=== PATIENT | male | born 1955 | race Caucasian/White ===

== ENCOUNTER 2017-12-01 05:32 | Inpatient (IN) | payer BC ==
[2017-12-01] MEDS ORDERED: CEFAZOLIN 2 GM/50 ML (PMX) 50 ML IVPB (06:00)
[2017-12-01] MEDS: BUPIVACAINE 0.5% (SDV) 30 ML, morphine SULFATE (PF) 8 MG, EPINEPHrine 0.3 MG, KETOROLAC... IRR ×2 (06:00→08:16)
[2017-12-01] MEDS: traMADol 50 MG TAB PO (06:04)
[2017-12-01] MEDS: DEXAMETHASONE 1 MG TAB PO (06:04)
[2017-12-01] MEDS: GABAPENTIN 300 MG CAP PO ×2 (06:05→21:29)
[2017-12-01] MEDS ORDERED: BUPIVACAINE 0.75%/DEXT (SPINAL) 2 ML INJ (06:42)
[2017-12-01] MEDS ORDERED: morphine SULFATE/PF (10 MG/10 ML) INJ (06:43)
[2017-12-01] MEDS ORDERED: EPINEPHrine 1 MG INJ (06:45)
[2017-12-01] MEDS ORDERED: FENTAnyl 50 MCG/ML VIAL (06:49)
[2017-12-01] MEDS ORDERED: MIDAZOLAM 1 MG/ML 2 ML INJ (06:49)
[2017-12-01] MEDS ORDERED: ONDANSETRON 4 MG INJ (07:00)
[2017-12-01] MEDS ORDERED: LIDOCAINE 2% (SDV) 5 ML INJ (07:00)
[2017-12-01] MEDS ORDERED: DEXAMETHASONE 4 MG/ML 1 ML INJ (07:00)
[2017-12-01] MEDS ORDERED: ROCURONIUM 50 MG INJ (07:00)
[2017-12-01] MEDS ORDERED: THROMBIN 5000 UNIT VIAL (07:36)
[2017-12-01] MEDS ORDERED: CA CHLORIDE 10% 10 ML SYRINGE (07:36)
[2017-12-01] MEDS: POLYMYXIN/BACITRACIN 1L IRRIG (08:11)
[2017-12-01] MEDS: SOD CHLORIDE 0.9% 100 ML, TRANEXAMIC ACID 3,000 MG IRR (08:12)
[2017-12-01] MEDS: TRANEXAMIC ACID 1,000 MG in DEXTROSE 5% 100 ML IVPB (08:19)
[2017-12-01] MEDS ORDERED: SUGAMMADEX SODIUM 200 MG/2 ML VIAL IV (09:25)
[2017-12-01] MEDS ORDERED: PROPOFOL 20 ML (09:25)
[2017-12-01] MEDS ORDERED: CEFAZOLIN 1 GM INJ (09:25)
[2017-12-01] MEDS ORDERED: morphine 2 MG INJ IV ×2 (09:30)
[2017-12-01] MEDS ORDERED: DIPHENHYDRAMINE 50 MG INJ IV ×3 (09:30→10:00)
[2017-12-01] MEDS ORDERED: ONDANSETRON 4 MG INJ IV ×3 (09:30→10:00)
[2017-12-01] MEDS ORDERED: KETOROLAC 15 MG INJ IV (09:30)
[2017-12-01] MEDS ORDERED: ACETAMINOPHEN 500 MG TAB PO (09:30)
[2017-12-01] MEDS ORDERED: MAGNESIUM HYDROXIDE 30ML CUP PO (09:30)
[2017-12-01] MEDS ORDERED: OXYCODONE/ACETAMINOPHEN (5/325) TAB PO ×4 (09:30→10:00)
[2017-12-01] MEDS ORDERED: ZOLPIDEM 5 MG TAB PO (09:30)
[2017-12-01] MEDS ORDERED: FENTAnyl 50 MCG/ML VIAL IV ×3 (10:00)
[2017-12-01] MEDS ORDERED: NALOXONE (0.4 MG/ML) INJ IV (10:00)
[2017-12-01] MEDS ORDERED: MEPERIDINE 25 MG INJ IV (10:00)
[2017-12-01] MEDS ORDERED: METOCLOPRAMIDE 10 MG INJ IV (10:00)
[2017-12-01] MEDS ORDERED: MIDAZOLAM 1 MG/ML 2 ML INJ IV (10:00)
[2017-12-01] MEDS ORDERED: KETOROLAC 30 MG INJ IV ×2 (10:00→14:00)
[2017-12-01] MEDS ORDERED: LABETALOL HCL 20MG INJ IV (10:00)
[2017-12-01] MEDS ORDERED: HYDROmorphONE (0.2 MG/ML) 10ML SYG IV ×3 (10:00)
[2017-12-01] MEDS ORDERED: ALBUTEROL 0.083% (NEB) 2.5 MG/3 ML AMP HHN (10:00)
[2017-12-01] MEDS ORDERED: HYDROmorphONE 0.5 MG/0.5 ML SYG IV ×2 (10:00)
[2017-12-01] MEDS ORDERED: EPHEDrine SULFATE 50 MG/5 ML SYG IV (10:00)
[2017-12-01] MEDS ORDERED: hydrALAzine 20 MG INJ IV (10:00)
[2017-12-01] MEDS: CEFAZOLIN 1 GM/50 ML (PMX) 50 ML IVPB ×2 (10:33→17:39)
[2017-12-01] MEDS: TRANEXAMIC ACID 1,000 MG in DEXTROSE 5% 100 ML IV (10:33)
[2017-12-01] MEDS: LACTATED RINGER'S 1,000 ML IV ×3 (11:29→22:40)
[2017-12-01] MEDS: DEXAMETHASONE 2 MG TAB PO ×2 (12:02→17:39)
[2017-12-01 12:05] LABS: ADD MAN DIFF? NO
[2017-12-01 12:19] LABS: BASOPHILS % 0.2 % (0.0-2.0); EOSINOPHILS % 0.1 % (0.0-7.0); HEMATOCRIT 38.4 % (42.0-52.0); HEMOGLOBIN 13.1 g/dl (14.0-18.0); LYMPHOCYTES # 0.7 10^3/ul (0.8-2.9); LYMPHOCYTES % 8.1 % (15.0-51.0); MEAN CORPUSCULAR HEMOGLOBIN 29.7 pg (29.0-33.0); MEAN CORPUSCULAR HGB CONC 34.1 g/dl (32.0-37.0); MEAN CORPUSCULAR VOLUME 87.1 fl (82.0-101.0); MEAN PLATELET VOLUME 7.9 fl (7.4-10.4); MONOCYTE # 0.5 10^3/ul (0.3-0.9); MONOCYTES % 5.3 % (0.0-11.0); NEUTROPHIL # 7.7 10^3/ul (1.6-7.5); NEUTROPHILS % 85.3 % (39.0-77.0); PLATELET COUNT 156 10^3/UL (140-415); RED BLOOD COUNT 4.41 10^6/ul (4.70-6.10); RED CELL DISTRIBUTION WIDTH 14.5 % (11.5-14.5)
[2017-12-01 12:19] LABS: WHITE BLOOD COUNT 9.1 10^3/ul (4.8-10.8)
[2017-12-01] MEDS: DOXAZOSIN 2 MG TAB PO (21:29)
[2017-12-01] MEDS: SENNA/DOCUSATE NA (8.6MG/50MG) TAB PO (21:30)
[2017-12-01] MEDS: ATORVASTATIN 10 MG TAB PO (21:30)
[2017-12-02] MEDS: CEFAZOLIN 1 GM/50 ML (PMX) 50 ML IVPB (01:30)
[2017-12-02] MEDS: ZOLPIDEM 5 MG TAB PO (01:30)
[2017-12-02] MEDS: DEXAMETHASONE 2 MG TAB PO ×2 (06:00)
[2017-12-02 06:14] LABS: ADD MAN DIFF? NO
[2017-12-02 06:19] LABS: WHITE BLOOD COUNT 9.9 10^3/ul (4.8-10.8)
[2017-12-02 06:19] LABS: BASOPHILS % 0.1 % (0.0-2.0); EOSINOPHILS # 0.1 10^3/ul (0.0-0.5); EOSINOPHILS % 0.5 % (0.0-7.0); HEMATOCRIT 34.6 % (42.0-52.0); HEMOGLOBIN 12.1 g/dl (14.0-18.0); LYMPHOCYTES # 0.8 10^3/ul (0.8-2.9); LYMPHOCYTES % 8.1 % (15.0-51.0); MEAN CORPUSCULAR HEMOGLOBIN 29.4 pg (29.0-33.0); MEAN CORPUSCULAR VOLUME 84.2 fl (82.0-101.0); MEAN PLATELET VOLUME 8.1 fl (7.4-10.4); MONOCYTE # 0.8 10^3/ul (0.3-0.9); MONOCYTES % 8.3 % (0.0-11.0); NEUTROPHIL # 8.1 10^3/ul (1.6-7.5); NEUTROPHILS % 82.2 % (39.0-77.0); PLATELET COUNT 170 10^3/UL (140-415); RED BLOOD COUNT 4.11 10^6/ul (4.70-6.10); RED CELL DISTRIBUTION WIDTH 13.8 % (11.5-14.5)
[2017-12-02] MEDS ORDERED: KETOROLAC 15 MG INJ IV (07:08)
[2017-12-02] MEDS ORDERED: morphine 2 MG INJ IV ×2 (07:08)
[2017-12-02] MEDS ORDERED: ZOLPIDEM 5 MG TAB PO (07:08)
[2017-12-02] MEDS ORDERED: ONDANSETRON 4 MG INJ IV (07:08)
[2017-12-02] MEDS ORDERED: OXYCODONE/ACETAMINOPHEN (5/325) TAB PO ×2 (07:08)
[2017-12-02] MEDS: ASPIRIN (EC) 81 MG TAB PO (08:13)
[2017-12-02] MEDS: LOSARTAN 50 MG TAB PO (08:14)
[2017-12-02] MEDS: SENNA/DOCUSATE NA (8.6MG/50MG) TAB PO (08:14)
[2017-12-02] MEDS: ALLOPURINOL 100 MG TAB PO (08:14)
[2017-12-02] MEDS: CHLORTHALIDONE 25 MG TAB PO (08:15)
[2017-12-02] MEDS ORDERED: ALLOPURINOL 100 MG TAB PO (09:00)
[2017-12-02] MEDS ORDERED: LOSARTAN 50 MG TAB PO (09:00)
[2017-12-02] MEDS ORDERED: ASPIRIN 81 MG TAB PO (09:00)
[2017-12-02] MEDS ORDERED: CHLORTHALIDONE 25 MG TAB PO (09:00)
== END 2017-12-02 12:20 | disposition home or self-care (01) | DRG 470 ==
LOC: REC 05:32 → MS1 11:02
PROVIDERS: Orthopaedic Surgery
PROC: 0SRB04A Replacement of Left Hip Joint with Ceramic on Polyethylene Synthetic Substitute, Uncemented, Open Approach (ICD-10-PCS; principal; 2017-12-01 07:00)
DX: M16.12 Unilateral primary osteoarthritis, left hip (principal); G47.33 Obstructive sleep apnea (adult) (pediatric); E78.5 Hyperlipidemia, unspecified; I10 Essential (primary) hypertension; N40.0 Benign prostatic hyperplasia without lower urinary tract symptoms
CPT/HCPCS: 72170; 73530; 85025; 86999; 87086; 97116; 97161

== ENCOUNTER 2017-12-17 08:45 | Emergency (ER) | payer BC ==
[2017-12-17] MEDS: SOD CHLORIDE 0.9% 1,000 ML IV (08:59)
[2017-12-17] MEDS: HYDROmorphONE 1 MG/5 ML IV SYRINGE IV ×2 (09:17→09:46)
[2017-12-17] MEDS: ONDANSETRON 4 MG INJ IV (09:46)
[2017-12-17 09:52] LABS: ADD MAN DIFF? NO
[2017-12-17 10:01] LABS: BASOPHILS % 0.6 % (0.0-2.0); EOSINOPHILS # 0.1 10^3/ul (0.0-0.5); EOSINOPHILS % 2.8 % (0.0-7.0); HEMATOCRIT 34.5 % (42.0-52.0); HEMOGLOBIN 11.7 g/dl (14.0-18.0); LYMPHOCYTES % 20.8 % (15.0-51.0); MEAN CORPUSCULAR HEMOGLOBIN 29.7 pg (29.0-33.0); MEAN CORPUSCULAR HGB CONC 33.9 g/dl (32.0-37.0); MEAN CORPUSCULAR VOLUME 87.6 fl (82.0-101.0); MEAN PLATELET VOLUME 7.9 fl (7.4-10.4); MONOCYTE # 0.5 10^3/ul (0.3-0.9); MONOCYTES % 9.5 % (0.0-11.0); NEUTROPHIL # 3.1 10^3/ul (1.6-7.5); NEUTROPHILS % 64.6 % (39.0-77.0); PLATELET COUNT 181 10^3/UL (140-415); RED BLOOD COUNT 3.94 10^6/ul (4.70-6.10); RED CELL DISTRIBUTION WIDTH 15.5 % (11.5-14.5)
[2017-12-17 10:01] LABS: WHITE BLOOD COUNT 4.7 10^3/ul (4.8-10.8)
[2017-12-17 10:12] LABS: ANION GAP 13 (8-16); BLOOD UREA NITROGEN 17 mg/dl (7-20); CALCIUM 8.5 mg/dl (8.4-10.2); CARBON DIOXIDE 32 mmol/L (21-31); CHLORIDE 89 mmol/L (97-110); CREATININE 1.16 mg/dl (0.61-1.24); GLUCOSE 109 mg/dl (70-220); POTASSIUM 3.2 mmol/L (3.5-5.1); SODIUM 131 mmol/L (135-144)
[2017-12-17 10:14] LABS: INR 0.96; PARTIAL THROMBOPLASTIN TIME 25.9 Sec (25.0-35.0); PROTIME 12.9 Sec (11.9-14.9)
[2017-12-17] MEDS: PROPOFOL 100 ML IV (10:55)
[2017-12-17] MEDS: FENTAnyl 50 MCG/ML VIAL IV (10:57)
== END 2017-12-17 12:47 | disposition home or self-care (01) ==
LOC: E/R 08:45
DX: T84.021A Dislocation of internal left hip prosthesis, initial encounter (principal); G89.18 Other acute postprocedural pain; I10 Essential (primary) hypertension; E66.9 Obesity, unspecified; M79.89 Other specified soft tissue disorders; W01.0XXA Fall on same level from slipping, tripping and stumbling without subsequent striking against object, initial encounter; Y79.2 Prosthetic and other implants, materials and accessory orthopedic devices associated with adverse incidents; Y92.9 Unspecified place or not applicable; Z96.641 Presence of right artificial hip joint; Z68.32 Body mass index [BMI] 32.0-32.9, adult
CPT/HCPCS: 27250; 36415; 72170; 73510; 80048; 85025; 85610; 85730; 93970; 94770; 96374; 96375; 99285-25

== ENCOUNTER 2017-12-19 17:59 | Emergency (ER) | payer BC ==
[2017-12-19] MEDS: HYDROmorphONE 1 MG/5 ML IV SYRINGE IV (18:18)
[2017-12-19] MEDS: SOD CHLORIDE 0.9% 1,000 ML IV (18:18)
[2017-12-19] MEDS: PROPOFOL 200 MG INJ IV (19:30)
[2017-12-21] MEDS ORDERED: CEFAZOLIN 2 GM/50 ML (PMX) 50 ML IVPB (06:00)
[2017-12-21] MEDS ORDERED: traMADol 50 MG TAB PO (06:00)
[2017-12-21] MEDS ORDERED: SOD CHLORIDE 0.9% 100 ML, TRANEXAMIC ACID 3,000 MG IRR (06:00)
[2017-12-21] MEDS ORDERED: BUPIVACAINE 0.5% (SDV) 30 ML, morphine SULFATE (PF) 8 MG, EPINEPHrine 0.3 MG, KETOROLAC... IRR (06:00)
[2017-12-21] MEDS ORDERED: TRANEXAMIC ACID 1,000 MG in DEXTROSE 5% 100 ML IVPB (06:00)
[2017-12-21] MEDS ORDERED: DEXAMETHASONE 1 MG TAB PO (06:00)
[2017-12-21] MEDS ORDERED: GABAPENTIN 300 MG CAP PO (06:00)
== END 2017-12-19 21:15 | disposition home or self-care (01) ==
LOC: E/R 17:59
DX: T84.021A Dislocation of internal left hip prosthesis, initial encounter (principal); I10 Essential (primary) hypertension; V00-Y99 External causes of morbidity; Z79.82 Long term (current) use of aspirin
CPT/HCPCS: 27265; 73510; 94770; 96374; 99285-25

== ENCOUNTER 2017-12-22 07:26 | Day surgery (SDC) | payer BC ==
[~2017-12-22 07:26] MED LIST: POLYMYXIN/BACITRACIN 1L IRRIG
[2017-12-22] MEDS ORDERED: FENTAnyl 50 MCG/ML VIAL (07:43)
[2017-12-22] MEDS ORDERED: NEOSTIGMINE 3 MG/3 ML SYRINGE (07:43)
[2017-12-22] MEDS ORDERED: PROPOFOL 20 ML (07:43)
[2017-12-22] MEDS ORDERED: CEFAZOLIN 1 GM INJ (07:43)
[2017-12-22] MEDS ORDERED: GLYCOPYRROLATE 0.4 MG INJ (07:43)
[2017-12-22] MEDS ORDERED: ROCURONIUM 50 MG INJ (07:43)
[2017-12-22] MEDS ORDERED: MIDAZOLAM 1 MG/ML 2 ML INJ (07:43)
[2017-12-22] MEDS ORDERED: DEXAMETHASONE 4 MG/ML 1 ML INJ (07:44)
[2017-12-22] MEDS ORDERED: ONDANSETRON 4 MG INJ (07:44)
[2017-12-22] MEDS ORDERED: morphine SULFATE/PF (10 MG/10 ML) INJ (07:44)
[2017-12-22] MEDS ORDERED: BUPIVACAINE 0.75%/DEXT (SPINAL) 2 ML INJ (07:44)
[2017-12-22] MEDS ORDERED: CEFAZOLIN 2 GM/50 ML (PMX) 50 ML IVPB (08:00)
[2017-12-22] MEDS: DEXAMETHASONE 1 MG TAB PO (08:19)
[2017-12-22] MEDS: GABAPENTIN 300 MG CAP PO (08:19)
[2017-12-22] MEDS: traMADol 50 MG TAB PO (08:20)
[2017-12-22 08:31] LABS: ADD MAN DIFF? NO
[2017-12-22 08:38] LABS: WHITE BLOOD COUNT 4.7 10^3/ul (4.8-10.8)
[2017-12-22 08:38] LABS: BASOPHILS % 0.6 % (0.0-2.0); EOSINOPHILS # 0.2 10^3/ul (0.0-0.5); EOSINOPHILS % 3.2 % (0.0-7.0); HEMATOCRIT 41.4 % (42.0-52.0); HEMOGLOBIN 13.8 g/dl (14.0-18.0); LYMPHOCYTES # 1.3 10^3/ul (0.8-2.9); LYMPHOCYTES % 27.5 % (15.0-51.0); MEAN CORPUSCULAR HEMOGLOBIN 29.4 pg (29.0-33.0); MEAN CORPUSCULAR HGB CONC 33.3 g/dl (32.0-37.0); MEAN CORPUSCULAR VOLUME 88.1 fl (82.0-101.0); MONOCYTE # 0.5 10^3/ul (0.3-0.9); MONOCYTES % 10.2 % (0.0-11.0); NEUTROPHIL # 2.7 10^3/ul (1.6-7.5); NEUTROPHILS % 57.2 % (39.0-77.0); PLATELET COUNT 227 10^3/UL (140-415); RED CELL DISTRIBUTION WIDTH 15.4 % (11.5-14.5)
[2017-12-22 09:03] LABS: ALANINE AMINOTRANSFERASE 39 IU/L (13-69); ALBUMIN 4.6 g/dl (3.3-4.9); ALBUMIN/GLOBULIN RATIO 1.64; ALKALINE PHOSPHATASE 62 IU/L (42-121); ANION GAP 15 (8-16); ASPARTATE AMINO TRANSFERASE 33 IU/L (15-46); BILIRUBIN,INDIRECT 0.9 mg/dl (0-1.1); BILIRUBIN,TOTAL 0.9 mg/dl (0.2-1.3); CARBON DIOXIDE 34 mmol/L (21-31); CHLORIDE 91 mmol/L (97-110); GLUCOSE 106 mg/dl (70-220); INR 0.89; PROTIME 12.1 Sec (11.9-14.9); PT RATIO 0.9; TOTAL PROTEIN 7.4 g/dl (6.1-8.1)
[2017-12-22 09:07] LABS: PARTIAL THROMBOPLASTIN TIME 25.3 Sec (25.0-35.0)
[2017-12-22 09:08] LABS: POTASSIUM 3.5 mmol/L (3.5-5.1); SODIUM 136 mmol/L (135-144)
[2017-12-22 09:09] LABS: BLOOD UREA NITROGEN 19 mg/dl (7-20); CALCIUM 9.3 mg/dl (8.4-10.2); CREATININE 1.05 mg/dl (0.61-1.24)
[2017-12-22] MEDS: BUPIVACAINE 0.5% (SDV) 30 ML, morphine SULFATE (PF) 8 MG, EPINEPHrine 0.3 MG, KETOROLAC... IRR ×2 (10:00→11:23)
[2017-12-22] MEDS: SOD CHLORIDE 0.9% 100 ML, TRANEXAMIC ACID 3,000 MG IRR (10:00)
[2017-12-22] MEDS ORDERED: TRANEXAMIC ACID 1,000 MG in DEXTROSE 5% 100 ML IVPB (10:00)
[2017-12-22] MEDS ORDERED: ALBUTEROL 0.083% (NEB) 2.5 MG/3 ML AMP HHN (10:30)
[2017-12-22] MEDS ORDERED: hydrALAzine 20 MG INJ IV (10:30)
[2017-12-22] MEDS ORDERED: LABETALOL HCL 20MG INJ IV (10:30)
[2017-12-22] MEDS ORDERED: FENTAnyl 50 MCG/ML VIAL IV ×2 (10:30)
[2017-12-22] MEDS ORDERED: EPHEDrine SULFATE 50 MG/5 ML SYG IV (10:30)
[2017-12-22] MEDS ORDERED: DIPHENHYDRAMINE 50 MG INJ IV ×2 (10:30→11:30)
[2017-12-22] MEDS ORDERED: OXYCODONE/ACETAMINOPHEN (5/325) TAB PO ×4 (10:30→11:30)
[2017-12-22] MEDS ORDERED: IPRATROPIUM (NEB) 0.5 MG/2.5 ML AMP HHN (10:30)
[2017-12-22] MEDS ORDERED: HYDROmorphONE (0.2 MG/ML) 10ML SYG IV ×3 (10:30)
[2017-12-22] MEDS ORDERED: NALOXONE (0.4 MG/ML) INJ IV (10:30)
[2017-12-22] MEDS ORDERED: MIDAZOLAM 1 MG/ML 2 ML INJ IV (10:30)
[2017-12-22] MEDS ORDERED: TRIMETHOBENZAMIDE 100 MG/ML VIAL IM (10:30)
[2017-12-22] MEDS ORDERED: SUGAMMADEX SODIUM 200 MG/2 ML VIAL IV (10:48)
[2017-12-22] MEDS: LACTATED RINGER'S 1,000 ML IV ×2 (11:20→21:20)
[2017-12-22] MEDS: CA CHLORIDE 10% 10 ML SYRINGE (11:24)
[2017-12-22] MEDS: THROMBIN 5000 UNIT VIAL (11:24)
[2017-12-22] MEDS: POLYMYXIN/BACITRACIN 1L IRRIG (11:26)
[2017-12-22] MEDS ORDERED: morphine 2 MG INJ IV ×2 (11:30)
[2017-12-22] MEDS ORDERED: ZOLPIDEM 5 MG TAB PO (11:30)
[2017-12-22] MEDS ORDERED: KETOROLAC 15 MG INJ IV (11:30)
[2017-12-22] MEDS ORDERED: TIZANIDINE 4 MG TAB PO (11:30)
[2017-12-22] MEDS ORDERED: ONDANSETRON 4 MG INJ IV (11:30)
[2017-12-22] MEDS ORDERED: MAGNESIUM HYDROXIDE 30ML CUP PO (11:30)
[2017-12-22] MEDS ORDERED: ACETAMINOPHEN 500 MG TAB PO (11:30)
[2017-12-22] MEDS: DEXAMETHASONE 2 MG TAB PO ×2 (12:00→17:36)
[2017-12-22] MEDS ORDERED: CEFAZOLIN 1 GM/50 ML (PMX) 50 ML IVPB (12:02)
[2017-12-22] MEDS: MEPERIDINE 25 MG INJ IV (12:03)
[2017-12-22] MEDS: ONDANSETRON 4 MG INJ IV (12:03)
[2017-12-22] MEDS: TRANEXAMIC ACID 1,000 MG in DEXTROSE 5% 100 ML IV (12:07)
[2017-12-22 12:20] LABS: ADD MAN DIFF? NO
[2017-12-22 12:26] LABS: BASOPHILS % 0.3 % (0.0-2.0); EOSINOPHILS % 0.5 % (0.0-7.0); HEMATOCRIT 35.4 % (42.0-52.0); HEMOGLOBIN 11.9 g/dl (14.0-18.0); LYMPHOCYTES # 0.6 10^3/ul (0.8-2.9); LYMPHOCYTES % 7.6 % (15.0-51.0); MEAN CORPUSCULAR HEMOGLOBIN 30.1 pg (29.0-33.0); MEAN CORPUSCULAR HGB CONC 33.6 g/dl (32.0-37.0); MEAN CORPUSCULAR VOLUME 89.4 fl (82.0-101.0); MEAN PLATELET VOLUME 7.6 fl (7.4-10.4); MONOCYTE # 0.3 10^3/ul (0.3-0.9); MONOCYTES % 3.9 % (0.0-11.0); NEUTROPHIL # 6.9 10^3/ul (1.6-7.5); NEUTROPHILS % 86.7 % (39.0-77.0); PLATELET COUNT 188 10^3/UL (140-415); RED BLOOD COUNT 3.96 10^6/ul (4.70-6.10); RED CELL DISTRIBUTION WIDTH 15.4 % (11.5-14.5)
[2017-12-22] MEDS: CEFAZOLIN 1 GM/50 ML (PMX) 50 ML IVPB ×2 (12:27→20:45)
[2017-12-22] MEDS: FENTAnyl 50 MCG/ML VIAL IV (13:57)
[2017-12-22] MEDS: SENNA/DOCUSATE NA (8.6MG/50MG) TAB PO (20:45)
[2017-12-22] MEDS: ATORVASTATIN 10 MG TAB PO (20:45)
[2017-12-22] MEDS: GABAPENTIN 400 MG CAP PO (20:45)
[2017-12-22] MEDS: FISH OIL 1,000 MG CAP PO (20:50)
[2017-12-22] MEDS ORDERED: ATORVASTATIN 10 MG TAB PO (21:00)
[2017-12-22] MEDS: DOXAZOSIN 2 MG TAB PO (21:00)
[2017-12-22] MEDS ORDERED: GABAPENTIN 300 MG CAP PO (21:00)
[2017-12-22] MEDS ORDERED: DOXAZOSIN 2 MG TAB PO (21:00)
[2017-12-22] MEDS ORDERED: SULFASALAZINE 500 MG TAB PO (21:00)
[2017-12-22] MEDS: ANASTROZOLE 1 MG TAB PO (22:22)
[2017-12-22] MEDS: SULFASALAZINE (EC) 500 MG TAB PO (22:22)
[2017-12-23] MEDS: DEXAMETHASONE 2 MG TAB PO ×2 (00:05→06:19)
[2017-12-23] MEDS: LACTATED RINGER'S 1,000 ML IV (00:07)
[2017-12-23] MEDS: CEFAZOLIN 1 GM/50 ML (PMX) 50 ML IVPB (04:41)
[2017-12-23 05:39] LABS: ADD MAN DIFF? NO
[2017-12-23 05:45] LABS: WHITE BLOOD COUNT 9.5 10^3/ul (4.8-10.8)
[2017-12-23 05:45] LABS: BASOPHILS % 0.1 % (0.0-2.0); EOSINOPHILS % 0.4 % (0.0-7.0); HEMATOCRIT 30.5 % (42.0-52.0); HEMOGLOBIN 10.5 g/dl (14.0-18.0); LYMPHOCYTES # 0.8 10^3/ul (0.8-2.9); LYMPHOCYTES % 8.4 % (15.0-51.0); MEAN CORPUSCULAR HGB CONC 34.4 g/dl (32.0-37.0); MEAN CORPUSCULAR VOLUME 87.1 fl (82.0-101.0); MONOCYTE # 0.6 10^3/ul (0.3-0.9); MONOCYTES % 6.4 % (0.0-11.0); PLATELET COUNT 224 10^3/UL (140-415); RED CELL DISTRIBUTION WIDTH 15.2 % (11.5-14.5)
[2017-12-23] MEDS ORDERED: ALLOPURINOL 100 MG TAB PO (09:00)
[2017-12-23] MEDS ORDERED: LOSARTAN 50 MG TAB PO (09:00)
[2017-12-23] MEDS ORDERED: GABAPENTIN 400 MG CAP PO (09:00)
[2017-12-23] MEDS: LOSARTAN 50 MG TAB PO (09:21)
[2017-12-23] MEDS: SENNA/DOCUSATE NA (8.6MG/50MG) TAB PO (09:21)
[2017-12-23] MEDS: AMLODIPINE 10 MG TAB PO (09:21)
[2017-12-23] MEDS: SULFASALAZINE (EC) 500 MG TAB PO (09:21)
[2017-12-23] MEDS: FISH OIL 1,000 MG CAP PO (09:22)
[2017-12-23] MEDS: ALLOPURINOL 100 MG TAB PO (09:22)
[2017-12-23] MEDS: HYDROCHLOROTHIAZIDE 12.5 MG CAP PO (09:22)
[2017-12-23] MEDS: CHLORTHALIDONE 25 MG TAB PO (09:22)
[2017-12-23] MEDS: ASPIRIN 81 MG TAB PO (09:22)
== END 2017-12-23 12:54 | disposition home or self-care (01) ==
LOC: SDS 07:26 → REC 15:07 → SDS 07:26 → REC 11:22 → MS1 15:07 → SDS 12-23 12:54
DX: T84.021A Dislocation of internal left hip prosthesis, initial encounter (principal); Y79.3 Surgical instruments, materials and orthopedic devices (including sutures) associated with adverse incidents; I10 Essential (primary) hypertension; E78.5 Hyperlipidemia, unspecified; N40.0 Benign prostatic hyperplasia without lower urinary tract symptoms; G47.33 Obstructive sleep apnea (adult) (pediatric)
CPT/HCPCS: 27134; 72170; 73530; 80053; 85025; 85610; 85730; 86850; 86900; 86901; 86999; 87086; 94660; 97161

== ENCOUNTER 2018-05-30 09:41 | Emergency (ER) | payer BC ==
[2018-05-30] MEDS: ONDANSETRON 4 MG INJ IV (09:58)
[2018-05-30] MEDS: morphine 4 MG/ML VIAL IV (09:58)
[2018-05-30 10:47] LABS: ADD MAN DIFF? NO
[2018-05-30 10:50] LABS: BASOPHILS % 0.3 % (0.0-2.0); EOSINOPHILS % 0.6 % (0.0-7.0); HEMATOCRIT 41.3 % (42.0-52.0); HEMOGLOBIN 14.6 g/dl (14.0-18.0); LYMPHOCYTES # 1.1 10^3/ul (0.8-2.9); MEAN CORPUSCULAR HEMOGLOBIN 30.9 pg (29.0-33.0); MEAN CORPUSCULAR HGB CONC 35.4 g/dl (32.0-37.0); MEAN CORPUSCULAR VOLUME 87.3 fl (82.0-101.0); MONOCYTE # 0.6 10^3/ul (0.3-0.9); NEUTROPHIL # 4.9 10^3/ul (1.6-7.5); NEUTROPHILS % 73.2 % (39.0-77.0); PLATELET COUNT 155 10^3/UL (140-415); RED BLOOD COUNT 4.73 10^6/ul (4.70-6.10)
[2018-05-30 10:50] LABS: WHITE BLOOD COUNT 6.6 10^3/ul (4.8-10.8)
[2018-05-30] MEDS: HYDROmorphONE 0.5 MG/0.5 ML SYG IV (11:00)
[2018-05-30] MEDS: PROPOFOL 200 MG INJ IV (11:02)
[2018-05-30 11:24] LABS: ANION GAP 17 (8-16); BLOOD UREA NITROGEN 18 mg/dl (7-20); CALCIUM 9.7 mg/dl (8.4-10.2); CARBON DIOXIDE 34 mmol/L (21-31); CHLORIDE 87 mmol/L (97-110); CREATININE 1.08 mg/dl (0.61-1.24); GLUCOSE 110 mg/dl (70-220); SODIUM 135 mmol/L (135-144)
[2018-05-30 11:40] LABS: TROPONIN-I < 0.012 ng/ml (0.000-0.120)
[2018-05-30 12:00] LABS: INR 0.95; PROTIME 12.8 Sec (11.9-14.9)
[2018-05-30 12:01] LABS: PARTIAL THROMBOPLASTIN TIME 26.6 Sec (23.0-35.0)
== END 2018-05-30 13:45 | disposition home or self-care (01) ==
LOC: E/R 09:41
DX: S73.005A Unspecified dislocation of left hip, initial encounter (principal); I10 Essential (primary) hypertension; R10.9 Unspecified abdominal pain; X58.XXXA Exposure to other specified factors, initial encounter; Y92.9 Unspecified place or not applicable
CPT/HCPCS: 27250; 36415; 71045; 73500; 73510; 80048; 84484; 85025; 85610; 85730; 93005; 96374; 99285-25